=== PATIENT | female | born 1990 | race Two or more races ===

== ENCOUNTER 2021-05-02 09:58 | Emergency (ER) | payer OTHER ==
[~2021-05-02] VITALS: Ht 172.7 cm; Wt 74.4 kg
[2021-05-02] MEDS ORDERED: PEPCID AC20 MG (10:33)
[2021-05-02] MEDS ORDERED: PERCOCET 5-3251 EACH PO (17:15)
[2021-05-02] MEDS ORDERED: LEVSIN/SL0.125 MG PO (17:15)
[2021-05-02] MEDS ORDERED: INTESTINEX680 M1 PO (17:15)
[2021-05-02] MEDS ORDERED: PEPCID AC20 MG PO (17:15)
== END 2021-05-02 17:25 ==
LOC: ER 09:58
DX: K50.911 Crohn's disease, unspecified, with rectal bleeding (principal)

== ENCOUNTER 2022-01-30 10:00 | Day surgery (SDC) | payer OTHER ==
[~2022-01-30 10:00] MED LIST: INTESTINEX680 M1 PO; LEVSIN/SL0.125 MG PO; PEPCID AC20 MG; PEPCID AC20 MG PO; PERCOCET 5-3251 EACH PO
== END 2022-01-30 14:20 | disposition home or self-care (01) ==
LOC: AMB-ENDOS 10:00
PROVIDERS: ATTEND Internal Medicine Gastroenterology
DX: K50.913 Crohn's disease, unspecified, with fistula (principal); K29.50 Unspecified chronic gastritis without bleeding; B96.81 Helicobacter pylori [H. pylori] as the cause of diseases classified elsewhere; K52.89 Other specified noninfective gastroenteritis and colitis; Z79.82 Long term (current) use of aspirin